=== PATIENT | male | born 1950 | race Two or more races ===

== ENCOUNTER 2024-09-17 14:51 | Outpatient (REF) | payer SELFPAY ==
[2024-09-17 15:34] LABS: Vancomycin Trough 17.9 ug/mL (5.0-20.0)
== END 2024-09-17 14:52 | disposition home or self-care (01) ==
LOC: LAB 14:51
PROVIDERS: PCP Internal Medicine; Visit Provider Internal Medicine
DX: M86.171 Other acute osteomyelitis, right ankle and foot (principal)
CPT/HCPCS: 36415; 80202